=== PATIENT | female | born 1960 | race Caucasian/White ===

== ENCOUNTER 2016-02-22 08:44 | Emergency (ER) | payer BC ==
[2016-02-22] MEDS ORDERED: METOCLOPRAMIDE 10 MG/2 ML VIAL ONE (09:40)
[2016-02-22] MEDS ORDERED: DIPHENHYDRAMINE 50 MG/ML VIAL ONE (09:41)
[2016-02-22] MEDS ORDERED: KETOROLAC 30 MG/ML VIAL ONE (12:10)
== END 2016-02-22 12:45 | disposition home or self-care (01) ==
LOC: ER 08:44
CPT/HCPCS: 70450; 72125; 96374; 96375